=== PATIENT | female | born 1980 | race Caucasian/White ===

== ENCOUNTER 2018-04-27 07:48 | Emergency (ER) | payer OTHER ==
[~2018-04-27] VITALS: Ht 172.7 cm; Wt 85.3 kg
[~2018-04-27 07:48] MED LIST: ACYCLOVIR 400400 MG; BACTRIM DS TAB1 EACH PO; CAMILA; CVS PRENATAL M1 EACH PO; FLOMAX PO; NOHOMEMEDICATIONS; NORCO 5-325 TA1 EACH PO; PHENERGAN 25 MG25 M1; PREDNISONE 10 M10 MG PO; PRENATAL; REGLAN 10 MG TA10 MG; TRAZODONE 150150 M1; ZOFRAN 4 MG ORAL4 M1 DIS; ZOFRAN4 MG; ZOLOFT; ZOLOFT100 MG; ZOLOFT100 MG PO; [UNRECOGNIZED DRUG - OTHER]
[2018-04-27 08:44] LABS: HEMOGLOBIN 13.2 gm/dL (12.0-15.0); MCH 30.5 pg (26.0-34.0); MCHC 33.1 g/dL (28.0-37.0); MCV 92.1 fL (80.0-100.0); MPV 8.2 fl. (7.2-11.1); RBC 4.34 mil/uL (4.20-5.00); RDW-CV 13.8 % (10.5-14.5); WBC 8.2 thou/uL (4.0-11.0)
[2018-04-27 09:11] LABS: CALCIUM 7.8 mg/dL (8.5-10.1); CREATININE 0.7 mg/dL (0.6-1.3); POTASSIUM 3.8 mmol/L (3.5-5.1)
[2018-04-27 09:16] LABS: ALBUMIN 3.4 g/dL (3.4-5.0); TOTAL BILIRUBIN 0.3 mg/dL (<0.1-1.0); TOTAL PROTEIN 6.4 g/dL (6.4-8.2)
[2018-04-27] MEDS ORDERED: FLEXERIL PO (10:02)
[2018-04-27] MEDS ORDERED: IBUPROFEN 800800 M1 PO (10:02)
[2018-04-27] MEDS ORDERED: NORCO 5-325 TA1 EACH PO (10:02)
[2018-04-27 10:15] VITALS: BP 122/55
== END 2018-04-27 10:16 | disposition home or self-care (01) ==
LOC: M.ERS 07:48
PROVIDERS: Emergency Medicine Emergency Medical Services
DX: S06.0X0A Concussion without loss of consciousness, initial encounter (principal); S16.1XXA Strain of muscle, fascia and tendon at neck level, initial encounter; F17.210 Nicotine dependence, cigarettes, uncomplicated; Z87.442 Personal history of urinary calculi; V49.49XA Driver injured in collision with other motor vehicles in traffic accident, initial encounter; Y93.89 Activity, other specified; Y92.89 Other specified places as the place of occurrence of the external cause; Y99.8 Other external cause status